=== PATIENT | male | born 1985 | race Caucasian/White ===

== ENCOUNTER 2021-08-17 11:57 | Emergency (ER) | payer SELFPAY ==
[~2021-08-17] VITALS: Ht 167.6 cm; Wt 81.8 kg
[2021-08-17 12:22] VITALS: BP 127/82
[2021-08-17] MEDS ORDERED: ONDA4TAB12 PO ×3 (13:21→13:38)
[2021-08-17] MEDS ORDERED: METH-797 PO ×2 (13:21→13:38)
[2021-08-17] MEDS ORDERED: HYDR-3972 PO ×2 (13:21→13:38)
[2021-08-20] MEDS ORDERED: ONDA4TAB12 PO (22:09)
== END 2021-08-17 14:09 | disposition home or self-care (01) ==
LOC: ER 11:57
DX: S22.41XA Multiple fractures of ribs, right side, initial encounter for closed fracture (principal); S29.012A Strain of muscle and tendon of back wall of thorax, initial encounter; S16.1XXA Strain of muscle, fascia and tendon at neck level, initial encounter; M62.830 Muscle spasm of back; V29.9XXA Motorcycle rider (driver) (passenger) injured in unspecified traffic accident, initial encounter; Y93.89 Activity, other specified; Y92.89 Other specified places as the place of occurrence of the external cause; Y99.8 Other external cause status
CPT/HCPCS: 71101; 99284